=== PATIENT | male | born 1985 | race Asian ===

== ENCOUNTER → 2016-11-11 | Outpatient (CLI) | payer OTHER | LOC: COL.RAD 07:18 | DX: G44.229 Chronic tension-type headache, not intractable (principal) ==

== ENCOUNTER 2018-09-10 03:37 | Emergency (ER) | payer OTHER ==
[~2018-09-10] VITALS: Ht 172.7 cm; Wt 81.8 kg
[2018-09-10 03:41] VITALS: TEMP 97.2
[2018-09-10 04:10] LABS: BASO # 0.1 (0.0-0.2); BASO % 0.4 % (0.0-2.0); EOS # 0.2 (0.0-0.7); EOS % 1.4 % (0-4.0); GRAN # 7.7 (1.4-6.5); GRAN % 65.5 % (42.2-75.2); HEMATOCRIT 43.6 % (42.0-52.0); HEMOGLOBIN 15.4 g/dl (13.5-18.0); LYMPH # 3.2 (1.2-3.4); LYMPH % 26.9 % (20.0-51.0); MEAN CELL VOLUME 84 fl (80.0-100.0); MEAN CORPUSCULAR HEMOGLOBIN 30 pg (27.0-31.0); MEAN CORPUSCULAR HGB CONC 35 g/dl (33.0-37.0); MEAN PLATELET VOLUME 9.3 fl (7.4-10.4); MONO # 0.6 (0.1-0.6); MONO % 5.5 % (1.7-9.3); PLATELET COUNT 213 K/mm3 (130-400); RED BLOOD COUNT 5.18 M/mm3 (4.20-5.60); REDCELL DISTRIBUTION WIDTH-CV 12.8 % (11.5-14.5)
[2018-09-10 04:21] LABS: ALBUMIN 4.8 gm/dL (3.5-5.0); BILIRUBIN,TOTAL 0.7 mg/dL (0.0-1.0); CALCIUM 10.3 mg/dL (8.4-10.2); CREATININE, serum 1.62 (0.66-1.25); POTASSIUM 3.1 mmol/L (3.4-5.0); TOTAL PROTEIN 7.7 gm/dL (6.4-8.2)
[2018-09-10 05:20] LABS: COLLECTION METHOD CLEAN CATCH
[2018-09-10] MEDS ORDERED: SYNTHROID0.075 MG/T PO (05:25)
[2018-09-10] MEDS ORDERED: INDERAL 20MG20 MG PO (05:26)
[2018-09-10] MEDS ORDERED: ZOLOFT 100MG100 MG PO (05:26)
[2018-09-10] MEDS ORDERED: LIPITOR 80MG80 MG PO (05:27)
[2018-09-10] MEDS ORDERED: TOPAMAX50 MG PO (05:27)
[2018-09-10] MEDS ORDERED: RITALIN LA40 MG PO (05:27)
[2018-09-10 05:39] LABS: AMORPHOUS CRYSTAL Present /uL; PH 8 (5-8); SQUAMOUS EPITHELIAL None Seen /hpf; URINE APPEARANCE Turbid; URINE BACTERIA None Seen /hpf; URINE BILIRUBIN Negative (NEGATIVE); URINE BLOOD 3+ (NEGATIVE); URINE COLOR Yellow; URINE GLUCOSE Negative (NEGATIVE); URINE KETONE Negative (NEGATIVE); URINE LEUKOCYTE ESTERASE Negative (NEGATIVE); URINE NITRATE Negative (NEGATIVE); URINE PROTEIN(semi-quant) 1+ (NEGATIVE); URINE RBC >50 /hpf; URINE UROBILINOGEN Negative (NEGATIVE)
[2018-09-10] MEDS ORDERED: NORCO 325 MG-51 TAB PO (06:11)
[2018-09-10] MEDS ORDERED: ZOFRAN ODT4 MG SL (06:11)
[2018-09-10 06:29] VITALS: BP 134/86; PULSE 75
== END 2018-09-10 06:35 | disposition home or self-care (01) ==
LOC: COL.ER 03:37
PROVIDERS: Emergency Medicine
DX: N20.1 Calculus of ureter (principal); I10 Essential (primary) hypertension; E78.5 Hyperlipidemia, unspecified; E03.9 Hypothyroidism, unspecified
CPT/HCPCS: J1885; J2405; J3010; J7030